=== PATIENT | female | born 1950 | race African-American/Black ===

== ENCOUNTER 2023-06-29 09:38 | Emergency (ER) | payer MEDICARE, SELFPAY ==
[2023-06-29 09:53] VITALS: BP 147/77; PULSE 68; RESP 16; TEMP 36.7; O2SAT 100
--- NOTE | 2023-06-29 10:13 | ED.ABDPAIN ---
HPI - Abdominal Pain General Chief Complaint: Abdominal Pain Stated Complaint: Left Side Pelvic Pain Time Seen by Provider: 06/29/23 09:41 Source: patient Mode of arrival: ambulatory Limitations: no limitations History of Present Illness HPI narrative: Allison is a 72-year-old female patient presenting to the clinic today with complaints of left lower quadrant abdominal pain with urinary frequency. She reports her pain is a 10/10 currently. States the pain is an achy pain. Pain is pretty constant. Last bowel movement was this morning-small formed without any blood in her stool. No history of ulcerative colitis, Crohn's, IBS. Had a colonoscopy completed 2 years ago and thinks that she has history of diverticulosis/diverticulitis. States she ate popcorn on [email or web address] Sunday. Denies any recent weight loss. [place] feverish with chills last night. Related Data Home Medications Medication Instructions Recorded Confirmed No Home Medications 06/29/23 06/29/23 Allergies Allergy/AdvReac Type Severity Reaction Status Date / Time No Known Allergies Allergy Verified 06/29/23 10:02 Review of Systems Review of Systems: Pertinent positives per HPI. Patient denies any fever, chills, rash, headache, visual changes, dizziness, cough, runny nose, sore throat, shortness of breath, chest pain, palpitations, nausea, vomiting, diarrhea, constipation. PMFSH Comments At the time of my signature, I reviewed and agree with the nursing past medical, surgical, social, and family history. There is no relevant family history pertinent to the patient complaint. Exam Narrative: General: Well-developed, well nourished, in no apparent distress. Head: Normocephalic, atraumatic. Cardio: Regular rate and rhythm, s1 and s2 normal, no murmur appreciated. Resp: Clear to auscultation bilaterally, no rhonchi, rales, wheezing or rubs. Abdomen: Soft, pliable, bowel sounds present in all quadrants, left lower quadrant tender to palpation, no organomegly, no CVAT tenderness. Course Course Emergency Course: Portions of this record may have been created with voice recognition software. Level of Care: Express Care Visit Vital Signs Vital signs: Vital Signs Temperature 36.7 C 06/29/23 09:53 Pulse Rate 68 06/29/23 09:53 Respiratory Rate 16 06/29/23 09:53 Blood Pressure 147/77 H 06/29/23 09:53 Pulse Oximetry 100 06/29/23 09:53 Oxygen Delivery Room Air 06/29/23 09:53 Temperature 36.7 C 06/29/23 09:53 Pulse Rate 68 06/29/23 09:53 Respiratory Rate 16 06/29/23 09:53 Blood Pressure 147/77 H 06/29/23 09:53 Pulse Oximetry 100 06/29/23 09:53 Oxygen Delivery Room Air 06/29/23 09:53 Vital signs reviewed Transfer Transfered to: [facility] Transportation: Other (private car) Transfer rationale: LLQ abdomen pain r/o diverticulitis Accepting physician: Dr. Queen Transfer comments: Private car. MDM - Abdominal Pain MDM Narrative Medical decision making narrative: At the time of visit patient is resting comfortably on the exam table. Patient appears to be nontoxic. Labs: UA dip negative for any sign of infection, blood, or protein. Plan: Patient is having left lower quadrant pain with a history of diverticulosis/diverticulitis. [place] feverish with chills last night. Recommend transfer to the emergency room for further evaluation to rule out diverticulitis. Patient would like to be transfer to [facility]. Contacted Dr. Queen and report was given for continuity of care and she accepts patient for transfer. Patient to drive by private car Differential Diagnosis Differential diagnosis: Likely abdominal pain, acute appendicitis, constipation, diverticulitis, gastroenteritis, pancreatitis, small bowel obstruction and other (Ovarian cyst, UTI) Discharge Plan Discharge Clinical Impression: Abdominal pain, acute, left lower quadrant Patient Disposition: Acute Care Hospital
== END 2023-06-29 10:34 | disposition short-term general hospital (02) ==
PROVIDERS: Emergency Provider Nurse Practitioner Family; PCP Internal Medicine
DX: R10.32 Left lower quadrant pain (principal)
CPT/HCPCS: 81003; 99212; G0463